=== PATIENT | female | born 1995 | race Caucasian/White ===

== ENCOUNTER 2021-04-23 05:54 | Outpatient (CLI) | payer BC ==
[2021-04-23] VITALS (8 sets, daily range): BP systolic 86–130; BP diastolic 49–70
[~2021-04-23] VITALS: Ht 175.3 cm; Wt 113.0 kg
[2021-04-23] MEDS ORDERED: LEVO75CA2 PO (06:31)
[2021-04-23] MEDS ORDERED: PROZ20CA11 PO (06:31)
[2021-04-23] MEDS ORDERED: HOME MED LIST COMPLETE! XX SCH (06:35)
[2021-04-23] MEDS ORDERED: ONDANSETRON 4MG/2ML VIAL IV PRN (06:40)
[2021-04-23] MEDS ORDERED: LACTATED RINGER'S 1000 ML IV ONE (06:40)
[2021-04-23] MEDS ORDERED: MORPHINE 4 MG/ML 1ML VIAL/SYRINGE (J2270) IV PRN (06:50)
[2021-04-23 06:56] LABS: APPEARANCE, URINE CLOUDY (CLEAR); BACTERIA, URINE AUTO 1+ (NEGATIVE); BILIRUBIN, URINE AUTO NEGATIVE (NEGATIVE); BLOOD, URINE BLOOD NEGATIVE (NEGATIVE); COLOR, URINE YELLOW (YELLOW); GLUCOSE, URINE (UA) AUTO NEGATIVE (NEGATIVE); KETONE, URINE AUTO NEGATIVE (NEGATIVE); LEUKOCYTE ESTERASE, URINE AUTO NEGATIVE (NEGATIVE); MUCUS, URINE SMALL (NEGATIVE); NITRITE, URINE AUTO NEGATIVE (NEGATIVE); PROTEIN, URINE AUTO 1+ mg/dL (NEGATIVE); RBC, URINE AUTO 1 /HPF (0-3); SPECIFIC GRAVITY URINE AUTO 1.021 (1.002-1.035); SQUAMOUS EPITHELIAL CELL UR AU 2 /HPF (0-6); WBC, URINE AUTO 1 /HPF (0-3)
[2021-04-23 07:10] LABS: HEMATOCRIT 36.3 % (36.0-47.0); HEMOGLOBIN 11.8 g/dl (12.0-15.5); MEAN CORPUSCULAR HEMOGLOBIN 28.8 pg (27.0-33.0); MEAN CORPUSCULAR HGB CONC 32.5 g/dl (32.0-36.5); MEAN CORPUSCULAR VOLUME 88.5 fl (80.0-96.0); PLATELET COUNT, AUTOMATED 246 10^3/uL (150-450); WHITE BLOOD COUNT 16.4 10^3/uL (4.0-10.0)
[2021-04-23 07:43] LABS: ALBUMIN 3.1 GM/DL (3.2-5.2); ALT/SGPT 39 U/L (12-78); AMYLASE 49 U/L (25-115); BILIRUBIN,TOTAL < 0.1 MG/DL (0.2-1.0); BLOOD UREA NITROGEN 9 MG/DL (7-18); CALCIUM LEVEL 9.8 MG/DL (8.5-10.1); CARBON DIOXIDE LEVEL 20 MEQ/L (21-32); CHLORIDE LEVEL 109 MEQ/L (98-107); CREATININE FOR GFR 0.52 MG/DL (0.55-1.30); GLOMERULAR FILTRATION RATE > 60.0 (>60); GLUCOSE, FASTING 117 MG/DL (70-100); LIPASE 111 U/L (73-393); SODIUM LEVEL 141 MEQ/L (136-145); THYROID STIMULATING HORMONE 0.753 uIU/ML (0.358-3.740)
--- NOTE | 2021-04-23 08:17 | REP ---
INDICATION: right upper epigastric pain and back pain COMPARISON: None. TECHNIQUE: Real time rose scale ultrasound examination using curved array transducer. FINDINGS: Liver is normal in contour, size, and echogenicity without focal hepatic lesions identified. Pancreas is incompletely evaluated due to interposed bowel gas. The gallbladder includes gallstones and layering sludge without wall thickening or pericholecystic fluid. A positive sonographic Carrasco sign was elicited during examination. No biliary ductal dilatation is appreciated and the common bile duct measures 4.6 mm diameter. Right kidney is normal in reniform shape without hydronephrosis and measures 13.8 x 5.4 x 4.6 cm. No ascites in the visualized right upper quadrant. Live intrauterine noted. FHR equals 153 bpm. IMPRESSION: 1. Cholelithiasis and positive sonographic Carrasco sign. Correlation is required as early acute cholecystitis cannot be excluded. 2. Live intrauterine . <Electronically signed by Elmo Pink > 04/23/21 0857
[2021-04-23] MEDS ORDERED: LR 1,000 ML IV SCH (08:35)
[2021-04-23] MEDS ORDERED: PROMETHAZINE INJ 25 MG/ML VIAL (J2550) IV ONE ×2 (08:45→13:00)
[2021-04-23] MEDS ORDERED: BUTORPHANOL 2 MG/ML INJ (J0595) IV ONE ×2 (08:45→13:00)
[2021-04-23] MEDS: ursodioL 300 MG CAP PO SCH ×2 (09:55→15:42)
[2021-04-23] MEDS ORDERED: URSO300C3 PO (15:35)
--- NOTE | 2021-04-23 15:46 | IPNPDOC ---
Obstetrical Progress Note Date of Service Apr 23, 2021 Subjective 25yo at 27+4 weeks EGA. Presented with worsening upper abdominal pain radiating to her back (past 24-48 hours). She also complains of frequent nausea vomiting today. Her pain was exacerbated after she ate a meal, which prompted her to be evaluated at [facility]. Denies any vaginal bleeding loss of fluid or uterine contractions. Reports regular movement. Denies fever, chills, m yalgias, shortness of breath, chest pain. Normotensive normal heart rate afebrile H; RRR, L: CTAB Abdomen: Gravid , FH c/w/d. No significant distension. No guarding. Upper abdominal pain positive Carrasco sign, no uterine fundal tenderness. No CVAT. Extremities nonedematous nontender EFM: Cat I [place]: no ctx pattern; irregular/rare Vital Signs Date Time Temp Pulse Resp B/P (MAP) Pulse Ox O2 Delivery O2 Flow Rate FiO2 04/23/21 13:10 20 04/23/21 12:55 120/70 (87) 04/23/21 12:52 98.4 77 20 89/57 (68) 98 Room Air 04/23/21 12:50 80 20 86/51 (63) 04/23/21 12:41 20 04/23/21 10:32 71 98 Room Air 04/23/21 10:31 97.6 75 20 105/54 (71) 04/23/21 09:20 16 04/23/21 09:08 18 04/23/21 08:24 75 91/49 (63) 04/23/21 07:55 16 04/23/21 07:21 16 04/23/21 06:06 97.1 79 18 106/60 (75) Room Air Laboratory Tests 04/23/21 06:35: Urine Color YELLOW, Urine Appearance CLOUDYH, Urine pH 6.0, Urine Specific Bascom 1.021, Urine Protein 1+H, Urine Glucose (Auto)(UA) NEGATIVE, Urine Ketones (Auto) NEGATIVE, Urine Blood NEGATIVE, Urine Nitrite NEGATIVE, Urine B ilirubin NEGATIVE, Urine Urobilinogen 2.0H, Urine Leukocyte Esterase (Auto) NEGATIVE, Urine WBC (Auto) 1, Urine RBC (Auto) 1, Urine Hyaline Casts (Auto) 0, Urine Bacteria (Auto) 1+H, Urine Squamous Epithelial Cells 2, Urine Mucus (Auto) SMALL, Urine Sperm (Auto) 04/23/21 06:57: White Blood Count 16.4H, Red Blood Count 4.10, Hemoglobin 11.8L, Hematocrit 36.3, Mean Corpuscular Volume 88.5, Mean Corpuscular Hemoglobin 28.8, Mean Corpuscular Hemoglobin Concent 32.5, Red Cell Distribution Width 14.6H, Platelet Count 246, Nucleated Red Blood Cells % (auto) 0.0, Sodium Level 141, Potassium Level 4.0, Chloride Level 109H, Carbon Dioxide Level 20L, Anion Gap 12, Blood Urea Nitrogen 9, Creatinine 0.52L, Glomerular Filtration Rate > 60.0, Fasting Glucose 117H, Calcium Level 9.8, Total Bilirubin < 0.1L, Aspartate Amino Transf (AST/SGOT) 23, Alanine Aminotransferase (ALT/SGPT) 39, Alkaline Phosphatase 149H, Total Protein 7.0, Albumin 3.1L, Albumin/Globulin Ratio 0.8L, Amylase Level 49, Lipase 111, Thyroid Stimulating Hormone (TSH) 0.753 FINDINGS: Liver is normal in contour, size, and echogenicity without focal hepatic lesions identified. Pancreas is incompletely evaluated due to interposed bowel gas. The gallbladder includes gallstones and layering sludge without wall thickening or pericholecystic fluid. A positive sonographic Carrasco sign was elicited during examination. No biliary ductal dilatation is appreciated and the common bile duct measures 4.6 mm diameter. Right kidney is normal in reniform shape without hydronephrosis and measures 13.8 x 5.4 x 4.6 cm. No ascites in the visualized right upper quadrant. Live intrauterine noted. FHR equals 153 bpm. IMPRESSION: 1. Cholelithiasis and positive sonographic Carrasco sign. Correlation is required as early acute cholecystitis cannot be excluded. 2. Live intrauterine . A/P: 25yo at 27+4 weeks with cholelithiasis. No e/o cholecystitis/choledocholithiasis/pancreatitis. Reassuring status. -Gen Surg (Dr. Bonilla) aware and agree with medical management, postponing surgical management until she is . Surgery will be reconsidered if maternal clinical presentation significantly worsens. -Medical management with Ursodiol 300mg TID. Patient given PO challenge (low fat), which she tolerated well. Pain and nausea controlled with Stadol and Phenergan. -Outpatient pain control plan: Tylenol 1g PO q6h PRN. Nausea: Phenergan 25mg PO q6h PRN. Routine precautions given follow up closely as outpatient (1-2 weeks) Fortino Seymour DO Objective Vital Signs Date Time Temp Pulse Resp B/P (MAP) Pulse Ox O2 Delivery O2 Flow Rate FiO2 04/23/21 13:10 20 04/23/21 12:55 120/70 (87) 04/23/21 12:52 98.4 77 98 Room Air STEPHANIE SEYMOUR DO Apr 23, 2021 15:46
[2021-04-23] MEDS ORDERED: PROM25TA12 PO (16:01)
== END 2021-04-23 15:50 | disposition home or self-care (01) ==
LOC: M LDO 05:54
PROVIDERS: ATTEND Advanced Practice Midwife
DX: O26.619 Liver and biliary tract disorders in pregnancy, unspecified trimester (principal); O21.9 Vomiting of pregnancy, unspecified; Z3A.27 27 weeks gestation of pregnancy
CPT/HCPCS: 59025; 76705; 80053; 81001; 82150; 83690; 84443; 85027; 96374; 96375; 96376; G0378; G0463; J0595; J2270; J2405

== ENCOUNTER → 2021-04-30 | Outpatient (CLI) | payer BC ==
[~2021-04-30] MED LIST: LEVO75CA2 PO; PROM25TA12 PO; PROZ20CA11 PO; URSO300C3 PO
[2021-04-30 15:22] LABS: HEMATOCRIT 35.4 % (36.0-47.0); HEMOGLOBIN 11.5 g/dl (12.0-15.5); MEAN CORPUSCULAR HEMOGLOBIN 28.3 pg (27.0-33.0); MEAN CORPUSCULAR HGB CONC 32.5 g/dl (32.0-36.5); MEAN CORPUSCULAR VOLUME 87.2 fl (80.0-96.0); PLATELET COUNT, AUTOMATED 277 10^3/uL (150-450); RED BLOOD COUNT 4.06 10^6/uL (4.00-5.40); WHITE BLOOD COUNT 12.3 10^3/uL (4.0-10.0)
[2021-04-30 16:00] LABS: FREE T4 0.89 NG/DL (0.76-1.46); THYROID STIMULATING HORMONE 1.37 uIU/ML (0.358-3.740)
== END ==
LOC: M PLALAB 11:20
PROVIDERS: ATTEND Obstetrics & Gynecology
DX: O99.282 Endocrine, nutritional and metabolic diseases complicating pregnancy, second trimester (principal); Z3A.00 Weeks of gestation of pregnancy not specified; E07.9 Disorder of thyroid, unspecified

== ENCOUNTER → 2021-04-30 | Outpatient (CLI) | payer BC | LOC: M PLALAB 11:25 | PROVIDERS: ATTEND Advanced Practice Midwife | DX: Z34.82 Encounter for supervision of other normal pregnancy, second trimester (principal); Z53.9 Procedure and treatment not carried out, unspecified reason; Z3A.00 Weeks of gestation of pregnancy not specified ==

== ENCOUNTER → 2021-05-28 | Outpatient (REF) | payer BC ==
[~2021-05-28] MED LIST changes: +CEPH250T PO; +PRENTAB9 PO
[2021-05-28 17:47] LABS: APPEARANCE, URINE HAZY (CLEAR); BACTERIA, URINE AUTO NEGATIVE (NEGATIVE); BILIRUBIN, URINE AUTO NEGATIVE (NEGATIVE); BLOOD, URINE BLOOD NEGATIVE (NEGATIVE); COLOR, URINE YELLOW (YELLOW); GLUCOSE, URINE (UA) AUTO NEGATIVE (NEGATIVE); KETONE, URINE AUTO TRACE mg/dL (NEGATIVE); LEUKOCYTE ESTERASE, URINE AUTO NEGATIVE (NEGATIVE); MUCUS, URINE SMALL (NEGATIVE); NITRITE, URINE AUTO NEGATIVE (NEGATIVE); PROTEIN, URINE AUTO NEGATIVE (NEGATIVE); RBC, URINE AUTO 0 /HPF (0-3); SPECIFIC GRAVITY URINE AUTO 1.011 (1.002-1.035); SQUAMOUS EPITHELIAL CELL UR AU 4 /HPF (0-6); UROBILINOGEN, URINE AUTO 0.2 mg/dL (0.0-2.0); WBC, URINE AUTO 0 /HPF (0-3)
== END ==
LOC: M SFHCWAGY 17:02
PROVIDERS: ATTEND Advanced Practice Midwife
DX: R10.2 Pelvic and perineal pain (principal)

== ENCOUNTER → 2021-06-25 | Outpatient (REF) | payer BC ==
[~2021-06-25] MED LIST changes: -CEPH250T PO; -PRENTAB9 PO
== END ==
LOC: M PLALAB 08:36
PROVIDERS: ATTEND Obstetrics & Gynecology
DX: Z34.93 Encounter for supervision of normal pregnancy, unspecified, third trimester (principal); Z3A.36 36 weeks gestation of pregnancy

== ENCOUNTER 2021-07-07 20:33 | Outpatient (CLI) | payer BC ==
[~2021-07-07] VITALS: Ht 175.3 cm; Wt 116.5 kg
[2021-07-07 20:59] VITALS: BP 125/73
[2021-07-07 22:50] VITALS: BP 127/69
== END 2021-07-07 23:05 | disposition home or self-care (01) ==
LOC: M LDO 20:33
PROVIDERS: ATTEND Obstetrics & Gynecology
DX: O60.03 Preterm labor without delivery, third trimester (principal); Z3A.38 38 weeks gestation of pregnancy; Z88.0 Allergy status to penicillin; Z88.1 Allergy status to other antibiotic agents
CPT/HCPCS: 59025; 76815; G0378; G0463

== ENCOUNTER → 2021-07-18 | Outpatient (REF) | payer BC ==
[~2021-07-18] MED LIST changes: +CEPH250T PO; +PRENTAB9 PO
[2021-07-19 10:20] LABS: APPEARANCE, URINE CLEAR (CLEAR); BACTERIA, URINE AUTO 2+ (NEGATIVE); BILIRUBIN, URINE AUTO NEGATIVE (NEGATIVE); BLOOD, URINE BLOOD NEGATIVE (NEGATIVE); COLOR, URINE YELLOW (YELLOW); GLUCOSE, URINE (UA) AUTO NEGATIVE (NEGATIVE); KETONE, URINE AUTO NEGATIVE (NEGATIVE); LEUKOCYTE ESTERASE, URINE AUTO TRACE (NEGATIVE); MUCUS, URINE SMALL (NEGATIVE); NITRITE, URINE AUTO NEGATIVE (NEGATIVE); PROTEIN, URINE AUTO NEGATIVE (NEGATIVE); RBC, URINE AUTO 1 /HPF (0-3); SPECIFIC GRAVITY URINE AUTO 1.006 (1.002-1.035); SQUAMOUS EPITHELIAL CELL UR AU 2 /HPF (0-6); TRANSITIONAL EPITHELIAL AUTO <1 /HPF; UROBILINOGEN, URINE AUTO 0.2 mg/dL (0.0-2.0); WBC, URINE AUTO 1 /HPF (0-3)
== END ==
LOC: M SFHCWAGY 09:45
PROVIDERS: ATTEND Obstetrics & Gynecology
DX: R30.0 Dysuria (principal)

== ENCOUNTER 2021-07-21 05:34 | Inpatient (IN) | payer BC ==
[~2021-07-21] VITALS: Ht 175.3 cm; Wt 117.2 kg
[2021-07-21] VITALS (28 sets, daily range): BP systolic 92–171; BP diastolic 54–96
[~2021-07-21 05:34] MED LIST changes: -CEPH250T PO; -PRENTAB9 PO
[2021-07-21] MEDS ORDERED: PRENTAB9 PO (06:08)
[2021-07-21] MEDS ORDERED: CEPH250T PO (06:08)
[2021-07-21] MEDS ORDERED: HOME MED LIST COMPLETE! XX SCH (07:10)
[2021-07-21 07:11] LABS: HEMATOCRIT 37.8 % (36.0-47.0); HEMOGLOBIN 12.7 g/dl (12.0-15.5); MEAN CORPUSCULAR HEMOGLOBIN 28.9 pg (27.0-33.0); MEAN CORPUSCULAR HGB CONC 33.6 g/dl (32.0-36.5); MEAN CORPUSCULAR VOLUME 86.1 fl (80.0-96.0); PLATELET COUNT, AUTOMATED 199 10^3/uL (150-450); RED BLOOD COUNT 4.39 10^6/uL (4.00-5.40); WHITE BLOOD COUNT 11.3 10^3/uL (4.0-10.0)
[2021-07-21 07:39] LABS: ALT/SGPT 31 U/L (12-78); BILIRUBIN,TOTAL 0.1 MG/DL (0.2-1.0); CREATININE FOR GFR 0.54 MG/DL (0.55-1.30); GLOMERULAR FILTRATION RATE > 60.0 (>60); LDH LACTATE DEHYDROGENASE 198 U/L (84-246); URIC ACID 5.6 MG/DL (2.6-6.0)
[2021-07-21 07:45] LABS: CREATININE,RANDOM URINE 83.1 MG/DL
[2021-07-21] MEDS ORDERED: OXYTOCIN DRIP 30 UNITS in IV 1 EA IV SCH (07:50)
[2021-07-21] MEDS: LR 1,000 ML IV SCH ×2 (16:35→17:31)
[2021-07-21] MEDS ORDERED: FENTANYL 2MCG/ML ROPIVACAINE 0.2% IN 0.9% NACL 100ML IVBAG As Ordered ONE (16:54)
[2021-07-21] MEDS ORDERED: EPIDURAL COMMENT XX SCH (18:25)
[2021-07-21] MEDS ORDERED: diphenhydrAMINE 50MG/ML VIAL (J1200) IV PRN (18:25)
[2021-07-21] MEDS ORDERED: FENTANYL/ROPIVACAINE/NACL BAG 100 ML EPIDURAL SCH (18:25)
[2021-07-21] MEDS ORDERED: LACTATED RINGER'S 1000 ML IV PRN (18:25)
[2021-07-21] MEDS ORDERED: ePHEDrine SULFATE 25 MG/5 ML(5MG/ML) SYRINGE IV PRN (18:25)
[2021-07-21] MEDS ORDERED: ONDANSETRON 4MG/2ML VIAL IV PRN (18:25)
[2021-07-21] MEDS ORDERED: REFRIGERATOR IV KEYS XX PRN (18:25)
[2021-07-21] MEDS ORDERED: EPIDURAL/PCA KEYS XX PRN (18:25)
[2021-07-21] MEDS ORDERED: NALOXONE INJ 0.4MG/1ML VIAL (J2310 PER 1MG) IV PRN (18:25)
[2021-07-21] MEDS ORDERED: LIDOCAINE 1% MDV 20ML VIAL As Ordered ONE (21:08)
[2021-07-21] MEDS ORDERED: IBUPROFEN 600MG TAB PO PRN (21:30)
[2021-07-21] MEDS ORDERED: ACETAMINOPHEN 500 MG TAB PO PRN (21:30)
[2021-07-21] MEDS ORDERED: METHYLERGONOVINE MALEATE 0.2 MG TAB PO PRN (21:30)
[2021-07-21] MEDS ORDERED: LIDOCAINE 1% MDV 20ML VIAL INFIL ONE (21:30)
[2021-07-21] MEDS ORDERED: OXYTOCIN DRIP 30 UNITS in IV 1 EA IV ONE (21:30)
[2021-07-21] MEDS ORDERED: RHOGAM 300 MCG (1500 IU) INJ (J2790) IM SCH (21:30)
[2021-07-21] MEDS ORDERED: DOCUSATE SODIUM 100MG CAPSULE PO PRN (21:30)
[2021-07-21] MEDS ORDERED: MEASLES,MUMPS,RUBELLA VACCINE INJ (MMR-II) (90707) SC SCH (21:30)
[2021-07-21] MEDS ORDERED: DIBUCAINE 1% OINTMENT 30GM TOP PRN (21:30)
[2021-07-21] MEDS ORDERED: ACETAMINOPHEN TAB 650MG DOSE (2X325MG) PO PRN (21:30)
[2021-07-22] MEDS: IBUPROFEN 800 MG TAB PO PRN ×2 (01:40→19:34)
[2021-07-22 05:33] VITALS: BP 112/55
[2021-07-22] MEDS: PRENATAL VITAMINS CHEWABLE TABLET PO SCH (09:17)
[2021-07-22 18:01] VITALS: BP 115/51
[2021-07-23] MEDS: IBUPROFEN 800 MG TAB PO PRN ×2 (05:06→12:56)
[2021-07-23 06:28] VITALS: BP 125/75
[2021-07-23] MEDS: PRENATAL VITAMINS CHEWABLE TABLET PO SCH (08:46)
== END 2021-07-23 13:30 | disposition home or self-care (01) | DRG 560 ==
LOC: M LDO 05:34 → M LDI 06:37 → M OBS 23:18
PROVIDERS: ADMIT Specialist; ATTEND Specialist
PROC: 10E0XZZ Delivery of Products of Conception, External Approach (ICD-10-PCS; principal; 2021-07-21)
PROC: 0HQ9XZZ Repair Perineum Skin, External Approach (ICD-10-PCS; 2021-07-21)
DX: O48.0 Post-term pregnancy (principal); O99.344 Other mental disorders complicating childbirth; F32.9 Major depressive disorder, single episode, unspecified; Z37.0 Single live birth; Z3A.40 40 weeks gestation of pregnancy; F41.9 Anxiety disorder, unspecified; Z79.899 Other long term (current) drug therapy; O70.0 First degree perineal laceration during delivery

== ENCOUNTER → 2021-10-14 | Outpatient (CLI) | payer BC, MEDICAID ==
[~2021-10-14] MED LIST changes: +CEPH250T PO; +HYDR-3713 PO; +PRENTAB9 PO; +PROM25TA22 PO
== END ==
LOC: M LABSMTC 10:35
PROVIDERS: ATTEND Anesthesiology
DX: Z20.828 Contact with and (suspected) exposure to other viral communicable diseases (principal); Z11.59 Encounter for screening for other viral diseases

== ENCOUNTER 2021-10-17 06:05 | Day surgery (SDC) | payer BC, MEDICAID ==
[~2021-10-17] VITALS: Ht 175.3 cm; Wt 111.8 kg
[~2021-10-17 06:05] MED LIST changes: +CelecoXIB 400 MG CAP PO ONE; +LevoFLOXacin IV 500 MG in IV 1 EA IV ONE
[2021-10-17] MEDS ORDERED: LIDOCAINE 1% SDV 30ML VIAL As Ordered ONE (07:07)
[2021-10-17] MEDS ORDERED: BUPIVACAINE HCL 0.25% 30ML VIAL As Ordered ONE (07:07)
[2021-10-17] MEDS ORDERED: INDOCYANINE GREEN 25MG VIAL (IC-GREEN) As Ordered ONE (07:07)
[2021-10-17] MEDS ORDERED: dexameTHASONE 4 MG/ML 1ML VIAL (J1100 PER 1MG) As Ordered ONE (07:55)
[2021-10-17] MEDS ORDERED: ACETAMINOPHEN 1000MG 100ML IV BTL (OFIRMEV) (J0131 PER 10MG) As Ordered ONE (07:55)
[2021-10-17] MEDS ORDERED: LIDOCAINE 2% 100MG/5ML SDV (FOR ANES.) As Ordered ONE (07:55)
[2021-10-17] MEDS ORDERED: SUGAMMADEX SODIUM 500 MG/5 ML VIAL (BRIDION) As Ordered ONE (07:55)
[2021-10-17] MEDS ORDERED: ONDANSETRON 4MG/2ML VIAL As Ordered ONE ×2 (07:55→10:05)
[2021-10-17] MEDS ORDERED: MIDAZOLAM INJ 2MG/2ML VIAL (J2250 PER 1MG) As Ordered ONE (07:55)
[2021-10-17] MEDS ORDERED: ROCURONIUM BROMIDE 50 MG/5 ML VIAL As Ordered ONE ×2 (07:55→08:15)
[2021-10-17] MEDS ORDERED: propofoL 200 MG/20 ML VIAL As Ordered ONE (07:55)
[2021-10-17] MEDS ORDERED: fentaNYL 250 MCG/5 ML INJECTION As Ordered ONE (07:55)
[2021-10-17] MEDS ORDERED: KETOROLAC 60MG 2ML VIAL As Ordered ONE (07:55)
[2021-10-17] MEDS ORDERED: METOCLOPRAMIDE INJ 10MG/2ML VIAL (J2765 PER 1) As Ordered ONE (07:55)
[2021-10-17] MEDS ORDERED: fentaNYL 100 MCG/2 ML INJECTION As Ordered ONE (10:05)
[2021-10-17] MEDS: fentaNYL 100 MCG/2 ML INJECTION IV PRN ×4 (10:05→10:32)
[2021-10-17] MEDS ORDERED: NORCO, ANEXSIA 5/325MG TABLET (HYDROcodone/ACETAMINOPHEN) PO PRN ×2 (10:15)
[2021-10-17] MEDS ORDERED: MEPERIDINE INJ 25 MG/ML VIAL (J2175) IV PRN (10:15)
[2021-10-17] MEDS ORDERED: KETOROLAC 30 MG/ML 1ML VIAL IV PRN (10:15)
[2021-10-17] MEDS ORDERED: LR 1,000 ML IV SCH (10:15)
[2021-10-17] MEDS ORDERED: ONDANSETRON 4MG/2ML VIAL IV PRN ×2 (10:15→10:20)
[2021-10-17] MEDS: oxyCODONE 5MG TAB PO PRN ×2 (10:22→10:49)
[2021-10-17 12:20] VITALS: BP 123/72
== END 2021-10-17 12:30 | disposition home or self-care (01) ==
LOC: M SDC 06:05
PROVIDERS: ATTEND Surgery
DX: K80.10 Calculus of gallbladder with chronic cholecystitis without obstruction (principal); E03.9 Hypothyroidism, unspecified; F41.9 Anxiety disorder, unspecified; F32.9 Major depressive disorder, single episode, unspecified; F17.218 Nicotine dependence, cigarettes, with other nicotine-induced disorders; Z79.899 Other long term (current) drug therapy; Z88.0 Allergy status to penicillin
CPT/HCPCS: 47563; 81025; 88304; J0131; J1100; J1885; J1956; J2250; J2405; J2765; J3010; Q9968; S2900